=== PATIENT | female | born 1995 | race Two or more races ===

== ENCOUNTER 2024-06-05 18:05 | Emergency (ER) | payer OTHER, SELFPAY ==
[2024-06-05 18:13] VITALS: BP 148/93; PULSE 109; TEMP 36.9; O2SAT 99; BMI 29.3
--- NOTE | 2024-06-05 18:19 | ED.GENADUL1 ---
HPI HPI - General Adult General Chief complaint: Headache Stated complaint: MIGRAINE FOR 3 DAYS Time Seen by Provider: 06/05/24 18:11 Source: patient Mode of arrival: walk-in History of Present Illness HPI narrative: The patient have history of migraine coming to the ER with few days history of frontal headache associated with some nausea as well as runny nose and body ache, the patient also have a cough but no shortness of breath no chest pain no diarrhea or nausea or vomiting Patient has been exposed to multiple family members with viral illness and she think she could be having COVID-19 Related Data Allergies Allergy/AdvReac Type Severity Reaction Status Date / Time acetaminophen [From Vicodin] AdvReac Severe Anaphylaxis Verified 06/05/24 18:11 hydrocodone [From Vicodin] AdvReac Severe Anaphylaxis Verified 06/05/24 18:11 Penicillins AdvReac Severe Anaphylaxis Verified 06/05/24 18:11 Opioid HPI Opioid Management Most Recent Opioid Data: No Data to Display Review of Systems ROS Status of ROS 10 or more systems reviewed and unremarkable except as noted in history and below Exam Narrative Exam Narrative: Nurses notes and vital signs reviewed and patient is not hypoxic. General: Well-appearing and in no apparent distress. Skin: Warm, dry, no pallor noted. No rash. Head: Normocephalic, atraumatic. Neck: Supple, non-tender. Eye: Pupils are equal, round and EOMI. No scleral icterus. Ears, Nose, Mouth, and Throat: TM are clear, no nasal mucosal hypertrophy. Oral mucosa is moist, no posterior oropharynx erythema, uvula is mid-line Cardiovascular: Regular Rate and Rhythm without murmur, gallop or rub. Respiratory: No accessory muscle use or respiratory distress. Lungs are clear to auscultation, no wheezing, rales or rhonchi Chest Wall: no tenderness Back: No midline thoracic or lumbar vertebral tenderness. No CVA tenderness Musculoskeletal: normal ROM, no calf or popliteal tenderness, no lower extremity edema/swelling GI: Abdomen is soft, non-distended. Normal bowel sounds. No masses appreciated. No tenderness to palpation. No rebound, guarding, or rigidity noted. Neurological: A&O x4. No cranial nerve dysfunction observed. No truncal ataxia. Moves all extremities. Sensation intact. Psychiatric: Cooperative and interactive. Normal mood and affect. Constitutional Vital Signs, click to edit/add: Last Vital Signs Temp 98.5 F 06/05/24 18:13 Pulse 109 H 06/05/24 18:13 Resp 18 06/05/24 18:13 BP 148/93 H 06/05/24 18:13 Pulse Ox 99 06/05/24 18:13 O2 Del Method Room Air 06/05/24 18:13 Course Vital Signs Vital signs: Vital Signs Temperature 98.5 F 06/05/24 18:13 Pulse Rate 109 H 06/05/24 18:13 Respiratory Rate 18 06/05/24 18:13 Blood Pressure 148/93 H 06/05/24 18:13 Pulse Oximetry 99 06/05/24 18:13 Oxygen Delivery Method Room Air 06/05/24 18:13 Temperature 98.5 F 06/05/24 18:13 Pulse Rate 109 H 06/05/24 18:13 Respiratory Rate 18 06/05/24 18:13 Blood Pressure 148/93 H 06/05/24 18:13 Pulse Oximetry 99 06/05/24 18:13 Oxygen Delivery Method Room Air 06/05/24 18:13 Medical Decision Making MDM Narrative Medical decision making narrative: The patient was treated in the ER with IV Toradol and Compazine She also had a COVID test as well Discharge Plan Discharge Chief Complaint: Headache Clinical Impression: Headache, Viral illness Print Language: Surinamese
[2024-06-05] MEDS: PROCHLORPERAZINE 10 MG/2 ML VIAL IV (18:33)
[2024-06-05] MEDS: KETOROLAC TROMETHAMINE 30 MG/ML VIAL 15 MG IVP (18:33)
--- NOTE | 2024-06-05 18:50 | ED_ITS ---
HPI HPI - General Adult General Chief complaint: Headache Stated complaint: MIGRAINE FOR 3 DAYS Time Seen by Provider: 06/05/24 18:11 Source: patient Mode of arrival: walk-in Related Data Allergies Allergy/AdvReac Type Severity Reaction Status Date / Time acetaminophen [From Vicodin] AdvReac Severe Anaphylaxis Verified 06/05/24 18:11 hydrocodone [From Vicodin] AdvReac Severe Anaphylaxis Verified 06/05/24 18:11 Penicillins AdvReac Severe Anaphylaxis Verified 06/05/24 18:11 Opioid HPI Opioid Management Most Recent Opioid Data: No Data to Display Exam Constitutional Vital Signs, click to edit/add: Last Vital Signs Temp 98.5 F 06/05/24 18:13 Pulse 109 H 06/05/24 18:13 Resp 18 06/05/24 18:13 BP 148/93 H 06/05/24 18:13 Pulse Ox 99 06/05/24 18:13 O2 Del Method Room Air 06/05/24 18:13 Course Vital Signs Vital signs: Vital Signs Temperature 98.5 F 06/05/24 18:13 Pulse Rate 109 H 06/05/24 18:13 Respiratory Rate 18 06/05/24 18:13 Blood Pressure 148/93 H 06/05/24 18:13 Pulse Oximetry 99 06/05/24 18:13 Oxygen Delivery Method Room Air 06/05/24 18:13 Temperature 98.5 F 06/05/24 18:13 Pulse Rate 109 H 06/05/24 18:13 Respiratory Rate 18 06/05/24 18:13 Blood Pressure 148/93 H 06/05/24 18:13 Pulse Oximetry 99 06/05/24 18:13 Oxygen Delivery Method Room Air 06/05/24 18:13 Medical Decision Making MDM Narrative Medical decision making narrative: The patient was provided in the ER with IV Toradol as well as IV Compazine And the COVID test was ordered Patient feeling better after initial treatment and her COVID test is positive she will just continue supportive care at home The patient is to follow up with primary care physician in next 2-3 days or to return to the emergency department should any of the signs or symptoms worsen or new symptoms develop. The patient agrees with the following Diagnosis and Treatment plan and the patient will be discharged home. Lab Data Labs: Lab Results 06/05/24 Range/Units 18:17 SARS-CoV-2 Ag (CV2AG) Positive A (NEGATIVE) Discharge Plan Discharge Stand Alone Forms: Work/School Release, Portal Instructions Chief Complaint: Headache Clinical Impression: Headache, COVID-19 Patient Disposition: Home, Self-Care Time of Disposition Decision: 18:55 Condition: Good Print Language: Kiswahili Instructions: COVID-19 (Coronavirus Disease 2019) (ED)
[2024-06-05 18:54] LABS: Internal Control Within Normal Limits; SARS-CoV-2 Ag POSITIVE (NEGATIVE)
[2024-06-05 19:19] VITALS: BP 128/82; PULSE 88; O2SAT 99
== END 2024-06-05 19:21 | disposition home or self-care (01) ==
LOC: ER 19:55
PROVIDERS: Emergency Provider Emergency Medicine
DX: U07.1 COVID-19 (principal); R51.9 Headache, unspecified
CPT/HCPCS: 87811; 96374; 96375; 99284; J0780; J1885